=== PATIENT | female | born 1935 | race African-American/Black ===

== ENCOUNTER 2017-06-06 18:40 | Emergency (ER) | payer MEDICARE, OTHER ==
[~2017-06-06] VITALS: Ht 154.9 cm; Wt 78.0 kg
[2017-06-06] MEDS ORDERED: IBUPROFEN 600MG TABLET PO ONE (20:00)
[2017-06-06] MEDS ORDERED: LIDOCAINE HCL 1% 20ML VIAL (Pyxis) INJ INFIL ONE (20:30)
[2017-06-06 21:05] VITALS: BP 132/73
== END 2017-06-06 23:03 | disposition home or self-care (01) ==
LOC: ER 23:00
DX: S63.282A Dislocation of proximal interphalangeal joint of right middle finger, initial encounter (principal); Y08.89XA Assault by other specified means, initial encounter; Y07.499 Other family member, perpetrator of maltreatment and neglect; Y93.89 Activity, other specified; Y92.89 Other specified places as the place of occurrence of the external cause; R03.0 Elevated blood-pressure reading, without diagnosis of hypertension
CPT/HCPCS: 26770; 73140; 99284; J3490

== ENCOUNTER 2018-01-09 11:38 | Emergency (ER) | payer OTHER, MEDICAID ==
[~2018-01-09] VITALS: Ht 160 cm; Wt 86.0 kg
[2018-01-09] MEDS ORDERED: DIPHENHYDRAMINE 50MG/ML VIAL IV ONE (13:30)
[2018-01-09] MEDS ORDERED: METHYLPREDNISOLONE SOD SUCC 125 MG/2 ML VIAL IV ONE (13:30)
[2018-01-09] MEDS ORDERED: FAMOTIDINE 20MG/2ML VIAL IV ONE (13:30)
[2018-01-09 13:50] LABS: BASOPHILS % 0.9 % (0.0-2.0); EOSINOPHILS % 2.1 % (0.0-5.0); HEMATOCRIT. 38.2 % (36.0-48.0); HEMOGLOBIN. 12.5 g/dL (12.0-16.0); LYMPHOCYTES % 26.4 % (20.0-50.0); MEAN CORPUSCULAR HEMOGLOBIN 30.3 pg (28.0-32.0); MEAN CORPUSCULAR VOLUME 92.8 fL (81.0-99.0); MEAN PLATELET VOLUME 7.8 fl (7.4-10.4); MONOCYTES % 7.5 % (2.0-8.0); NEUTROPHILS % 63.1 % (40.0-76.0); PLATELET 247 x1000/uL (130-400); RED BLOOD CELL COUNT 4.12 mill/uL (4.2-5.4); RED CELL DISTRIBUTION WIDTH 14.8 % (11.6-14.6)
[2018-01-09 13:55] LABS: CHLORIDE 105 mEq/L (98-107)
[2018-01-09 13:56] LABS: PROTHROMBIN TIME 10.6 sec (9.4-11.6)
[2018-01-09 17:08] VITALS: BP 137/62
== END 2018-01-09 18:12 | disposition home or self-care (01) ==
LOC: ER 12:40
DX: T78.3XXA Angioneurotic edema, initial encounter (principal); I10 Essential (primary) hypertension; Z88.5 Allergy status to narcotic agent; Z90.49 Acquired absence of other specified parts of digestive tract
CPT/HCPCS: 36415; 80053; 85025; 85610; 96374; 96375; 99284; J1200; J2930; J3490